=== PATIENT | female | born 1960 | race Caucasian/White ===

== ENCOUNTER 2018-03-29 04:16 | Emergency (ER) | payer MEDICAID ==
[~2018-03-29] VITALS: Ht 175.3 cm; Wt 83.2 kg
[~2018-03-29 04:16] MED LIST: ASPI-611 PO; ATOR20TA PO; CARV3.122 PO; FURO-150 PO; LISI-604 PO; NITR0.4T48 SL; POTA-82 PO
[2018-03-29 04:18] VITALS: BP 157/85
[2018-03-29] MEDS ORDERED: SULF1TAB49 PO (04:42)
== END 2018-03-29 05:05 | disposition home or self-care (01) ==
LOC: ER 04:17
DX: L03.311 Cellulitis of abdominal wall (principal); I10 Essential (primary) hypertension; I50.9 Heart failure, unspecified; G89.29 Other chronic pain; Z90.710 Acquired absence of both cervix and uterus; Z79.82 Long term (current) use of aspirin; Z79.899 Other long term (current) drug therapy; Z88.8 Allergy status to other drugs, medicaments and biological substances
CPT/HCPCS: 99283

== ENCOUNTER 2023-10-04 08:09 | Inpatient (IN) | payer BC, MEDICAID ==
[~2023-10-04] VITALS: Ht 175.3 cm; Wt 68.9 kg
[~2023-10-04 08:09] MED LIST changes: -LISI-604 PO; +LISI5TAB22 PO; +POTA-366 PO; -POTA-82 PO
[2023-10-04] MEDS ORDERED: pantoprazole 40MG/NS 100ML BAG 100 ML IV ONE (09:10)
[2023-10-04 09:27] LABS: BASOPHILS # (AUTO) 0.1 X10'3 (0-0.2); BASOPHILS % (AUTO) 0.5 % (0-1); EOSINOPHILS # (AUTO) 0.2 X10'3 (0-0.9); EOSINOPHILS % (AUTO) 1.4 % (0-6); HEMATOCRIT 41.6 % (35.0-45.0); HEMOGLOBIN 13.4 g/dl (12.0-16.0); LYMPHOCYTES # (AUTO) 1.7 X10'3 (1.1-4.8); LYMPHOCYTES % (AUTO) 12.5 % (21-51); MEAN CORPUSCULAR HEMOGLOBIN 30.1 PG (27.0-31.0); MEAN CORPUSCULAR HGB CONC 32.2 g/dL (33.0-36.5); MEAN CORPUSCULAR VOLUME 93.5 FL (78-98); MEAN PLATELET VOLUME 7.9 FL (7.4-10.4); MONOCYTES # (AUTO) 0.8 X10'3 (0-0.9); MONOCYTES % (AUTO) 5.5 % (2-12); NEUTROPHILS % (AUTO) 80.1 % (42-75); PLATELET COUNT 269 X10'3 (140-440); RED BLOOD COUNT 4.45 X10'6 (4.20-5.60); RED CELL DISTRIBUTION WIDTH 13.1 % (11.5-14.5); WHITE BLOOD COUNT 13.8 X10'3 (4.5-11.0)
[2023-10-04] MEDS: ondansetron/PF 4mg/2ml inj IM ONE (09:27)
[2023-10-04] MEDS: pantoprazole 40 MG vial IV ONE (09:29)
[2023-10-04] MEDS: normal saline 1000ML IV soln IVB ONE ×2 (09:35→15:31)
[2023-10-04 10:05] LABS: ALANINE AMINOTRANSFERASE 38 U/L (12-78); ALBUMIN 3.3 G/DL (3.4-5.0); ALKALINE PHOSPHATASE 84 IU/L (46-116); ANION GAP 11 (8-16); ASPARTATE AMINO TRANSFERASE 23 U/L (10-37); BILIRUBIN,TOTAL 0.6 MG/DL (0.1-1.0); BLOOD UREA NITROGEN 80 MG/DL (7-18); BUN/CREATININE RATIO 40.6 (10.0-20.0); CALCIUM 8.9 MG/DL (8.5-10.1); CHLORIDE 107 MMOL/L (99-107); CREATININE 1.97 MG/DL (0.40-0.90); GLUCOSE 109 MG/DL (70-104); LIPASE 173 U/L (16-77); POTASSIUM 4.8 MMOL/L (3.5-5.1); SODIUM 144 MMOL/L (135-145); TOTAL CARBON DIOXIDE 26.5 MMOL/L (24-32); TOTAL PROTEIN 6.7 G/DL (6.4-8.2); eCRCL 30 ML/MIN; eGFR 26 ML/MIN
[2023-10-04 10:49] LABS: OCCULT BLOOD STOOL POSITIVE (Neg)
[2023-10-04] MEDS: metoclopramide 5 mg/ml inj IV ONE (11:41)
[2023-10-04] MEDS: diphenhydrAMINE 50 mg/ml inj IM ONE (11:42)
[2023-10-04] MEDS: normal saline 1000ml 1,000 ML IV ONE (11:59)
[2023-10-04 14:01] LABS: ETHANOL < 10 MG/DL (<10)
[2023-10-04 15:39] LABS: APTT 24 SECONDS (22-32); PROTHROMBIN TIME 11.2 SECONDS (9.0-12.0)
[2023-10-04] MEDS ORDERED: acetaminophen 325mg tablet PO PRN (15:50)
[2023-10-04] MEDS ORDERED: mag hydrox/Alum hydrox/simeth 30ml oral suspension PO PRN (15:50)
[2023-10-04] MEDS ORDERED: magnesium 2GM in 50ml NS 50 ML IV PRN (15:50)
[2023-10-04] MEDS ORDERED: magnesium 4gm in 100ml NS 100 ML IV PRN (15:50)
[2023-10-04] MEDS ORDERED: ondansetron/PF 4mg/2ml inj IV PRN (15:50)
[2023-10-04] MEDS ORDERED: potassium Cl 20 mEq SR tablet PO PRN ×2 (15:50)
[2023-10-04] MEDS ORDERED: potassium Cl 40MEQ/1/2NS 520ml 520 ML IV PRN (15:50)
[2023-10-04 16:36] LABS: PRO BRAIN NATRIURETIC PEPTIDE 543 PG/ML (0-125)
[2023-10-04] MEDS: pantoprazole 40MG/NS 100ML BAG 100 ML IV SCH (16:53)
[2023-10-04 17:45] LABS: URINE HCG NEGATIVE (NEG)
[2023-10-04 17:46] LABS: BILIRUBIN,URINE NEGATIVE (Neg); CLARITY,URINE SLIGHTLY CLOUDY (Clear); COLOR,URINE YELLOW (Yellow); GLUCOSE, URINE 500 mg/dl (Neg); KETONES,URINE NEGATIVE (Neg); LEUKOCYTE ESTERASE ,URINE NEGATIVE (Neg); NITRITES, URINE NEGATIVE (Neg); OCCULT BLOOD,URINE SMALL (Neg); PROTEIN,URINE NEGATIVE (Neg); UROBILINOGEN,URINE 0.2 E.U/dL (0.2-1.0)
[2023-10-04 17:57] LABS: UA COLLECTION TYPE CLN CATCH MIDSTREAM
[2023-10-04 17:58] LABS: HYALINE CASTS 0-3 /LPF (NEGATIVE); MUCUS STRANDS FEW /LPF (Neg); SQUAMOUS EPITHELIAL CELL,UR FEW /LPF (FEW)
[2023-10-04 17:59] LABS: BACTERIA,URINE FEW /HPF (Neg); RBC,URINE 0-2 /HPF (0-2); WBC,URINE 0-4 /HPF (0-4)
[2023-10-04 18:42] LABS: HEMATOCRIT 40.2 % (35.0-45.0); HEMOGLOBIN 12.9 g/dl (12.0-16.0); MEAN CORPUSCULAR HEMOGLOBIN 29.9 PG (27.0-31.0); MEAN CORPUSCULAR VOLUME 93.4 FL (78-98); PLATELET COUNT 239 X10'3 (140-440); RED CELL DISTRIBUTION WIDTH 13.4 % (11.5-14.5); WHITE BLOOD COUNT 13.7 X10'3 (4.5-11.0)
[2023-10-04] MEDS: K and/or MAG REPLACEMENT MC SCH (20:00)
[2023-10-04] MEDS: docusate sod 100mg capsule PO SCH (21:05)
[2023-10-05] VITALS (13 sets, daily range): BP systolic 93–121; BP diastolic 47–68; PULSE 86–98; RESP 12–21; TEMP 97–97.8; O2SAT 92–99
[2023-10-05 05:33] LABS: BASOPHILS # (AUTO) 0.1 X10'3 (0-0.2); BASOPHILS % (AUTO) 0.6 % (0-1); EOSINOPHILS % (AUTO) 0.5 % (0-6); HEMOGLOBIN 12.2 g/dl (12.0-16.0); LYMPHOCYTES # (AUTO) 2.3 X10'3 (1.1-4.8); LYMPHOCYTES % (AUTO) 26.1 % (21-51); MEAN CORPUSCULAR HEMOGLOBIN 30.5 PG (27.0-31.0); MEAN CORPUSCULAR VOLUME 95.2 FL (78-98); MEAN PLATELET VOLUME 7.9 FL (7.4-10.4); MONOCYTES % (AUTO) 11.5 % (2-12); NEUTROPHILS # (AUTO) 5.5 X10'3 (1.8-7.7); NEUTROPHILS % (AUTO) 61.3 % (42-75); PLATELET COUNT 219 X10'3 (140-440); RED BLOOD COUNT 3.99 X10'6 (4.20-5.60); RED CELL DISTRIBUTION WIDTH 13.5 % (11.5-14.5); WHITE BLOOD COUNT 8.9 X10'3 (4.5-11.0)
[2023-10-05 05:46] LABS: ALANINE AMINOTRANSFERASE 28 U/L (12-78); ALBUMIN 2.7 G/DL (3.4-5.0); ALKALINE PHOSPHATASE 69 IU/L (46-116); ANION GAP 9 (8-16); ASPARTATE AMINO TRANSFERASE 41 U/L (10-37); BILIRUBIN,TOTAL 0.4 MG/DL (0.1-1.0); BLOOD UREA NITROGEN 73 MG/DL (7-18); CALCIUM 7.9 MG/DL (8.5-10.1); CHLORIDE 114 MMOL/L (99-107); CREATININE 1.66 MG/DL (0.40-0.90); GLUCOSE 78 MG/DL (70-104); MAGNESIUM 2.1 MG/DL (1.5-2.4); SODIUM 142 MMOL/L (135-145); TOTAL CARBON DIOXIDE 19.2 MMOL/L (24-32); TOTAL PROTEIN 5.5 G/DL (6.4-8.2); eCRCL 36 ML/MIN; eGFR 31 ML/MIN
[2023-10-05 05:52] LABS: POTASSIUM 5.1 MMOL/L (3.5-5.1)
[2023-10-05] MEDS ORDERED: LIDOcaine 2% Viscous 15ml cup ONE (13:15)
[2023-10-05] MEDS ORDERED: fentaNYL/PF 50MCG/1 ML 2ML syringe ONE (13:27)
[2023-10-05] MEDS ORDERED: MIDAZolam 1 MG/ML 5ML VIAL ONE (13:27)
[2023-10-06] VITALS (7 sets, daily range): BP systolic 107–121; BP diastolic 53–75; PULSE 67–85; RESP 14–20; TEMP 98.1–98.6; O2SAT 91–98
[2023-10-06 06:10] LABS: BASOPHILS # (AUTO) 0.1 X10'3 (0-0.2); BASOPHILS % (AUTO) 0.8 % (0-1); EOSINOPHILS # (AUTO) 0.2 X10'3 (0-0.9); EOSINOPHILS % (AUTO) 2.6 % (0-6); HEMATOCRIT 32.2 % (35.0-45.0); HEMOGLOBIN 10.6 g/dl (12.0-16.0); LYMPHOCYTES # (AUTO) 1.4 X10'3 (1.1-4.8); LYMPHOCYTES % (AUTO) 22.3 % (21-51); MEAN CORPUSCULAR HEMOGLOBIN 30.7 PG (27.0-31.0); MEAN CORPUSCULAR HGB CONC 32.9 g/dL (33.0-36.5); MEAN CORPUSCULAR VOLUME 93.1 FL (78-98); MEAN PLATELET VOLUME 7.6 FL (7.4-10.4); MONOCYTES # (AUTO) 0.7 X10'3 (0-0.9); MONOCYTES % (AUTO) 10.2 % (2-12); NEUTROPHILS # (AUTO) 4.1 X10'3 (1.8-7.7); NEUTROPHILS % (AUTO) 64.1 % (42-75); PLATELET COUNT 199 X10'3 (140-440); RED BLOOD COUNT 3.46 X10'6 (4.20-5.60); RED CELL DISTRIBUTION WIDTH 13.2 % (11.5-14.5); WHITE BLOOD COUNT 6.4 X10'3 (4.5-11.0)
[2023-10-06 06:31] LABS: ALANINE AMINOTRANSFERASE 24 U/L (12-78); ALBUMIN 2.7 G/DL (3.4-5.0); ALKALINE PHOSPHATASE 65 IU/L (46-116); ANION GAP 5 (8-16); ASPARTATE AMINO TRANSFERASE 20 U/L (10-37); BILIRUBIN,TOTAL 0.4 MG/DL (0.1-1.0); BLOOD UREA NITROGEN 50 MG/DL (7-18); BUN/CREATININE RATIO 31.1 (10.0-20.0); CHLORIDE 110 MMOL/L (99-107); CREATININE 1.61 MG/DL (0.40-0.90); GLUCOSE 99 MG/DL (70-104); MAGNESIUM 1.8 MG/DL (1.5-2.4); POTASSIUM 4.4 MMOL/L (3.5-5.1); SODIUM 139 MMOL/L (135-145); TOTAL CARBON DIOXIDE 23.6 MMOL/L (24-32); TOTAL PROTEIN 5.4 G/DL (6.4-8.2); eCRCL 37 ML/MIN; eGFR 32 ML/MIN
[2023-10-06] MEDS ORDERED: insulin Lispro (HumaLOG) vial - multi-dose SQ SCH (12:55)
[2023-10-06] MEDS ORDERED: glucagon, human recombinant 1mg kit SUBCUT PRN (12:55)
[2023-10-06] MEDS ORDERED: dextrose 50%-water 50ml dispensing syringe IV PRN ×2 (12:55)
[2023-10-06] MEDS ORDERED: DEXTROSE 15 GM of carb/4 tabs (each vial/BOTTLE has 4 tablets) PO PRN ×2 (12:55)
[2023-10-06] MEDS: MESSAGE TO PHARMACY PO ONE (12:55)
[2023-10-06] MEDS ORDERED: PANT-47 PO (13:24)
[2023-10-06 13:55] LABS: HEMOGLOBIN A1C 5.6 % (4.5-6.2)
[2023-10-06] MEDS: insulin glargine (Lantus) pen - multi-dose SQ SCH (21:00)
[2023-10-07 03:17] LABS: BASOPHILS % (AUTO) 0.7 % (0-1); EOSINOPHILS # (AUTO) 0.2 X10'3 (0-0.9); HEMOGLOBIN 9.8 g/dl (12.0-16.0); LYMPHOCYTES # (AUTO) 1.7 X10'3 (1.1-4.8); LYMPHOCYTES % (AUTO) 25.9 % (21-51); MEAN CORPUSCULAR HEMOGLOBIN 30.3 PG (27.0-31.0); MEAN CORPUSCULAR HGB CONC 32.8 g/dL (33.0-36.5); MEAN CORPUSCULAR VOLUME 92.4 FL (78-98); MEAN PLATELET VOLUME 7.4 FL (7.4-10.4); MONOCYTES # (AUTO) 0.7 X10'3 (0-0.9); MONOCYTES % (AUTO) 10.3 % (2-12); NEUTROPHILS # (AUTO) 3.9 X10'3 (1.8-7.7); NEUTROPHILS % (AUTO) 60.1 % (42-75); PLATELET COUNT 182 X10'3 (140-440); RED BLOOD COUNT 3.25 X10'6 (4.20-5.60); RED CELL DISTRIBUTION WIDTH 13.1 % (11.5-14.5); WHITE BLOOD COUNT 6.4 X10'3 (4.5-11.0)
[2023-10-07 04:02] LABS: ALANINE AMINOTRANSFERASE 24 U/L (12-78); ALBUMIN 2.8 G/DL (3.4-5.0); ALKALINE PHOSPHATASE 55 IU/L (46-116); ANION GAP 8 (8-16); ASPARTATE AMINO TRANSFERASE 12 U/L (10-37); BILIRUBIN,TOTAL 0.3 MG/DL (0.1-1.0); BLOOD UREA NITROGEN 31 MG/DL (7-18); BUN/CREATININE RATIO 23.5 (10.0-20.0); CALCIUM 8.5 MG/DL (8.5-10.1); CHLORIDE 109 MMOL/L (99-107); CREATININE 1.32 MG/DL (0.40-0.90); GLUCOSE 106 MG/DL (70-104); MAGNESIUM 1.8 MG/DL (1.5-2.4); POTASSIUM 4.1 MMOL/L (3.5-5.1); SODIUM 143 MMOL/L (135-145); TOTAL PROTEIN 5.5 G/DL (6.4-8.2); eCRCL 45 ML/MIN; eGFR 41 ML/MIN
[2023-10-07 06:00] VITALS: BP 88/56; PULSE 78; RESP 19; TEMP 97.3; O2SAT 93
[2023-10-07 08:00] VITALS: RESP 19; O2SAT 93
== END 2023-10-07 13:55 | disposition home or self-care (01) | DRG 378 ==
LOC: ER 08:09 → ED HOLD 17:27 → PCU 3S 10-05 00:26
PROVIDERS: ADMIT Family Medicine; ATTEND Family Medicine
PROC: 0DB78ZX Excision of Stomach, Pylorus, Via Natural or Artificial Opening Endoscopic, Diagnostic (ICD-10-PCS; principal; 2023-10-05)
DX: K29.71 Gastritis, unspecified, with bleeding (principal); I50.22 Chronic systolic (congestive) heart failure; N17.9 Acute kidney failure, unspecified; K25.4 Chronic or unspecified gastric ulcer with hemorrhage; E86.0 Dehydration; I11.0 Hypertensive heart disease with heart failure; F17.210 Nicotine dependence, cigarettes, uncomplicated; Z66 Do not resuscitate; F20.9 Schizophrenia, unspecified; D72.829 Elevated white blood cell count, unspecified; F10.11 Alcohol abuse, in remission; F19.11 Other psychoactive substance abuse, in remission; G89.29 Other chronic pain; Z90.710 Acquired absence of both cervix and uterus; Z79.82 Long term (current) use of aspirin; Z79.899 Other long term (current) drug therapy; Z88.8 Allergy status to other drugs, medicaments and biological substances
CPT/HCPCS: 36415; 43239; 80053; 80320; 81001; 81025; 82272; 83036; 83690; 83735; 83880; 84145; 85025; 85027; 85610; 85730; 86885; 86900; 86901; 87081; 96361; 96372; 96374; 96375; 97116; 97161; 97530; 99152; 99285; A4620; C1758; C9113; G0378; J1200; J1815; J2250; J2765; J3010; J7030; J7050

== ENCOUNTER 2024-10-03 09:36 | Day surgery (SDC) | payer BC, MEDICARE ==
[2024-10-03] VITALS (9 sets, daily range): BP systolic 112–143; BP diastolic 67–95; PULSE 65–74; RESP 14–16; TEMP 97.5; O2SAT 97–100
[~2024-10-03] VITALS: Ht 175.3 cm; Wt 64.2 kg
[~2024-10-03 09:36] MED LIST changes: +PANT-47 PO
[2024-10-03] MEDS ORDERED: LORazepam 0.5 MG tablet PO PRN (10:10)
[2024-10-03] MEDS ORDERED: CARV12.5 PO (10:22)
[2024-10-03] MEDS ORDERED: GABA-530 PO (10:24)
[2024-10-03] MEDS ORDERED: DAPA10TA PO (10:25)
[2024-10-03] MEDS ORDERED: SPIR50TA5 PO (10:26)
[2024-10-03] MEDS ORDERED: ACET-1025 PO (10:28)
[2024-10-03 10:43] LABS: BASOPHILS # (AUTO) 0.1 X10'3 (0-0.2); EOSINOPHILS # (AUTO) 0.2 X10'3 (0-0.9); EOSINOPHILS % (AUTO) 3.4 % (0-6); HEMATOCRIT 43.9 % (35.0-45.0); HEMOGLOBIN 14.6 g/dl (12.0-16.0); LYMPHOCYTES # (AUTO) 1.9 X10'3 (1.1-4.8); LYMPHOCYTES % (AUTO) 31.3 % (21-51); MEAN CORPUSCULAR HEMOGLOBIN 30.8 PG (27.0-31.0); MEAN CORPUSCULAR HGB CONC 33.1 g/dL (33.0-36.5); MEAN CORPUSCULAR VOLUME 92.8 FL (78-98); MEAN PLATELET VOLUME 7.8 FL (7.4-10.4); MONOCYTES # (AUTO) 0.6 X10'3 (0-0.9); MONOCYTES % (AUTO) 10.4 % (2-12); NEUTROPHILS # (AUTO) 3.4 X10'3 (1.8-7.7); NEUTROPHILS % (AUTO) 53.9 % (42-75); PLATELET COUNT 239 X10'3 (140-440); RED BLOOD COUNT 4.73 X10'6 (4.20-5.60); RED CELL DISTRIBUTION WIDTH 14.1 % (11.5-14.5); WHITE BLOOD COUNT 6.2 X10'3 (4.5-11.0)
[2024-10-03 10:54] LABS: ALBUMIN 3.9 G/DL (3.4-5.0); ANION GAP 10 (8-16); APTT 27 SECONDS (22-32); BLOOD UREA NITROGEN 29 MG/DL (7-18); BUN/CREATININE RATIO 18.8 (10.0-20.0); CHLORIDE 106 MMOL/L (99-107); CREATININE 1.54 MG/DL (0.40-0.90); GLUCOSE 70 MG/DL (70-104); POTASSIUM 3.9 MMOL/L (3.5-5.1); SODIUM 144 MMOL/L (135-145); TOTAL CARBON DIOXIDE 28.4 MMOL/L (24-32); eCRCL 37 ML/MIN; eGFR 34 ML/MIN
[2024-10-03 11:16] LABS: PROTHROMBIN TIME 10.8 SECONDS (9.0-12.0)
[2024-10-03] MEDS: normal saline 1,000 ML IV SCH (11:35)
[2024-10-03] MEDS: diphenhydrAMINE 25mg capsule PO PRN (11:35)
[2024-10-03] MEDS ORDERED: LIDOcaine 1% (10mg/ml) 2ml vial ONE (12:09)
[2024-10-03] MEDS ORDERED: verapamil 2.5 mg/ml inj IV ONE (12:09)
[2024-10-03] MEDS ORDERED: nitroGLYCERIN 500mcg/5mL D5W 5 ML IV ONE (12:10)
[2024-10-03] MEDS ORDERED: heparin 1,000unit/ml 10ml vial 10 ML ONE (12:10)
[2024-10-03] MEDS ORDERED: fentaNYL/PF 50MCG/1 ML 2ML syringe ONE (12:10)
[2024-10-03] MEDS ORDERED: midazolam 1 mg/ML 2ml injection ONE (12:10)
[2024-10-03] MEDS ORDERED: iohexol 350MG/ML 100ml bottle IV ONE (12:10)
[2024-10-03] MEDS ORDERED: HYDROcodone/acetaminophen 10/325mg tab PO PRN (14:00)
[2024-10-03] MEDS ORDERED: HYDROcodone/acetaminophen 5mg/325mg tablet PO PRN (14:00)
== END 2024-10-03 16:15 | disposition home or self-care (01) ==
LOC: SSTAY O 09:36
PROVIDERS: ATTEND Student in an Organized Health Care Education/Training Program
DX: R07.9 Chest pain, unspecified (principal); I25.118 Atherosclerotic heart disease of native coronary artery with other forms of angina pectoris; I10 Essential (primary) hypertension; I44.7 Left bundle-branch block, unspecified; E78.5 Hyperlipidemia, unspecified; F41.9 Anxiety disorder, unspecified; Z88.8 Allergy status to other drugs, medicaments and biological substances; F20.9 Schizophrenia, unspecified; I42.0 Dilated cardiomyopathy; Z79.899 Other long term (current) drug therapy
CPT/HCPCS: 36415; 80048; 85025; 85610; 85730; 93005; 93458; A6258; J1644; J2003; J2250; J3010; J3490; J7030; Q0163; Q9967; 99152; A6402; C1894